=== PATIENT | female | born 1975 | race Two or more races ===

== ENCOUNTER 2017-05-22 22:31 | Emergency (ER) | payer OTHER ==
--- NOTE | 2017-05-22 23:25 | ED ---
Skin Complaint - HPI Summary HPI Summary: Pt here w/ atraumatic bruise over Lt upper ab which she noticed today. No acute pain but is tender touch in places. Bruises easily when she bumps into things but reports she definitely did not bump, lean or hit this area of her abdomen prior to bruising. Gums bleed occasionally with brushing teeth. Otherwise, denies hematuria, hematochezia, heavy/prolonged menstrual periods, headaches and /or spontaneous epistaxis. She is overall healthy but does have a thyroid nodule which is monitored by PCP. Was on levothyroxine in the past but not at this time. She also takes medication for depression/anxiety and insomnia - gabapentin, prozac and 2 other medications of which she does not recall the name. - History of Current Complaint Chief Complaint: EDGeneral Time Seen by Provider: 05/22/17 23:05 Stated Complaint: UNEXPLAINED BRUISING ON STOMACH Hx Obtained From: Patient Pain Intensity: 0 - Allergy/Home Medications Allergies/Adverse Reactions: Allergies Allergy/AdvReac Type Severity Reaction Status Date / Time No Known Allergies Allergy Verified 05/22/17 23:48 PMH/Surg Hx/FS Hx/Imm Hx Previously Healthy: Yes Endocrine/Hematology History: Reports: Hx Thyroid Disease - nodule monitored by PCP - no meds currently, but h/o levothyroxine use Denies: Hx Anticoagulant Therapy, Hx Blood Disorders, Hx Unexplained Bleeding Psychiatric History: Reports: Hx Anxiety, Hx Depression, Other Psychiatric Issues/Disorders - insomnia, trichotillomania Infectious Disease History: No Infectious Disease History: Denies: Traveled Outside the [place] in Last 30 Days - Social History Occupation: Unemployed - stay at home mom Lives: With Family Alcohol Use: None Hx Substance Use: No Substance Use Type: Reports: None Hx Tobacco Use: No Smoking Status (MU): Never Smoked Tobacco Review of Systems Constitutional: Negative Negative: Fever, Chills, Fatigue Negative: Sore Throat Cardiovascular: Negative Negative: Palpitations, Chest Pain Respiratory: Negative Negative: Shortness Of Breath Gastrointestinal: Negative Negative: Abdominal Pain, Vomiting, Diarrhea, Nausea Positive: no symptoms reported. Negative: hematuria Musculoskeletal: Negative Negative: Arthralgia, Myalgia Positive: Bruising - see HPI Neurological: Negative Positive: Anxious All Other Systems Reviewed And Are Negative: Yes Physical Exam Triage Information Reviewed: Yes Vital Signs On Initial Exam: Initial Vitals Temp Pulse Resp BP Pulse Ox 98.2 F 89 16 172/94 100 05/22/17 22:33 05/22/17 22:33 05/22/17 22:33 05/22/17 22:33 05/22/17 22:33 Vital Signs Reviewed: Yes Appearance: Positive: Well-Appearing, No Pain Distress, Obese Skin: Positive: Warm, Dry - well defined macular patch of 4cm ecchymosis over LUQ - mild TTP - no edema - central 2mm scab - pt denies known tick bite nor environment that would expose her to such insects; various nickel sized healing bruises over LE's Head/Face: Positive: Normal Head/Face Inspection Eyes: Positive: Normal, EOMI ENT: Positive: Hearing grossly normal, Pharynx normal Neck: Positive: Supple, Nontender - no gross thyromegaly observed Respiratory/Lung Sounds: Positive: Clear to Auscultation, Breath Sounds Present Cardiovascular: Positive: Normal, RRR Abdomen Description: Positive: Nontender, No Organomegaly, Soft Bowel Sounds: Positive: Present Musculoskeletal: Positive: Normal, Strength/ROM Intact Neurological: Positive: Normal, Sensory/Motor Intact, Alert, Oriented to Person Place, Time, CN Intact II-III Psychiatric: Positive: Anxious - but cooperative, polite Diagnostics - Vital Signs Vital Signs Temp Pulse Resp BP Pulse Ox 05/22/17 22:43 99.7 F 82 16 134/80 98 05/22/17 22:33 98.2 F 89 16 172/94 100 - Laboratory Result Diagrams: 05/22/17 23:55 05/22/17 23:55 Lab Statement: Any lab studies that have been ordered have been reviewed, and results considered in the medical decision making process. Course/Dx - Course Course Of Treatment: Pt here w/ spontaneous, atraumatic ecchymosis over abdomen noticed today. Mild soreness to touch but no tony pain. Admits she does bruise easily and gums bleed w/ brushing teeth a little. No known bleeding d/o. Labs are remarkable for Fe Def anemia but H&H as well as vitals are all stable. Pt admits to poor eating habits (skips meals) - she is not sure if she's eating foods rich in iron or not. Agrees to f/u w/ PCP for further investigation as we also discussed possibility of tick bite here although pt does not feel this is the case as she didn't notice a tick attached here and she does not expose herself to wildlife. No EM rash observed today. Will also discuss side effects of medications w/ PCP in the event one or multiple are causing adverse effects on physiological processes triggering bruising. Reviewed danger s/sx of when to return to ED. Prozac can cause bleeding dysfunction and platelet issues. - Diagnoses Provider Diagnoses: Spontaneous bruising, Iron deficiency anemia Discharge - Discharge Plan Condition: Stable Disposition: HOME Patient Education Materials: Iron Rich Diet (ED), Iron Deficiency Anemia (ED), Contusion in Adults (ED) Referrals: Kerline Nieto MD [Primary Care Provider] - Additional Instructions: Follow-up with PCP for further evaluation of spontaneous bruising. Call tomorrow to schedule an appointment. NOTE: prozac can cause platelet dysfunction - do not stop taking. Discuss with PCP. *If you develop abdominal pain, fever, chills, vomiting, chest pain, shortness of breath, fatigue, return to ED
[2017-05-23 00:30] LABS: Albumin 3.8 g/dL (3.2-5.2); Calcium 9.1 mg/dL (8.6-10.3); EGFR African American 111.9 (>60); Globulin 3.7 g/dL (2-4); Potassium 3.8 mmol/L (3.5-5.0); Total Bilirubin 0.4 mg/dL (0.2-1.0); Total Protein 7.5 g/dL (6.4-8.9)
[2017-05-23 00:37] LABS: Hematocrit 35 % (35-47); Hemoglobin 11.4 g/dl (12.0-16.0); Mean Corpuscular HGB Conc 33 g/dl (31-36); Mean Corpuscular Hemoglobin 29 pg (27-31); Mean Corpuscular Volume 88 fL (80-97); Mean Platelet Volume 9 um3 (7.4-10.4); Red Blood Count 3.98 10^6/ul (4.0-5.4); Red Cell Distribution Width 15 % (10.5-15); White Blood Count 11.2 10^3/ul (3.5-10.8)
[2017-05-23 01:11] LABS: TSH (Thyroid Stimulating Horm) 3.39 mcIU/mL (0.34-5.60)
[2017-05-23 01:15] VITALS: BP 113/95
== END 2017-05-23 02:00 | disposition home or self-care (01) ==
LOC: ED 22:31
DX: M79.81 Nontraumatic hematoma of soft tissue (principal); F41.9 Anxiety disorder, unspecified; D50.9 Iron deficiency anemia, unspecified
CPT/HCPCS: 36415; 80053; 82150; 83540; 83550; 83690; 84443; 85025; 85610; 85730; 99282